=== PATIENT | female | born 1945 | race Caucasian/White ===

== ENCOUNTER 2017-06-24 10:28 | Outpatient (CLI) ==
--- NOTE | 2017-06-24 11:47 | DEXA ---
Exam: Bone densitometry DEXA scan performed on the [employer]. Comparison: 06/21/2014. Reason for exam: Screening. FINDINGS: Imaging was obtained of the lumbar spine and deemed to be adequate for interpretation. The total BMD of the lumbar spine measures 1.63 grams per centimeter squared. T-score 3.7. Z-score 4.9. T-score on the previous exam performed 06/21/2014 measured 3.6. WHO classification suggests normal bone mineral density. Imaging was obtained of the hips and is deemed to be adequate for interpretation. The mean total bone mineral density of the hips measures 1.073 grams per centimeter squared. T-score 0.5. Z-score 1.7. Previous mean T-score measured 0.6. WHO classification suggests normal bone mineral density. Impression: 1. WHO classification suggests normal bone mineral density of the lumbar spine and hips. 2. WHO 10-year probability of fracture (FRAX) fracture risk percentage Major osteoporotic fracture risk 13.6%. Hip fracture risk 2.7%.
== END 2017-06-24 10:29 | disposition home or self-care (01) ==
LOC: RAD 10:28
PROVIDERS: ATTEND Nurse Practitioner
DX: Z12.31 Encounter for screening mammogram for malignant neoplasm of breast (principal); Z78.0 Asymptomatic menopausal state
CPT/HCPCS: 77067

== ENCOUNTER 2022-12-09 22:00 | Observation (INO) ==
[2022-12-09] MEDS ORDERED: ZOFRAN 4 MG/2 ML IVP STA (22:40)
[2022-12-09] MEDS ORDERED: LACTATED RINGERS 1,000 ML IV STA (22:40)
--- NOTE | 2022-12-09 22:40 | ED.PDOC ---
General ED Provider: Dr. LEO PRIDE Chief Complaint: Nausea/Vomiting Stated Complaint: Patient is a 76 year old female who comes to the ER with vomiting and Diarrhea for two days but none in the past day. Vomited 4 ties in the last 24. Last one was 1800. Time Seen by Provider: 12/09/22 22:37 Mode of Arrival: Walk-In Information Source: Patient Primary Care Provider: LUIS F FELDER Nursing and Triage Documentation Reviewed and Agree: Yes Does patient meet sepsis criteria?: No System Inflammatory Response Syndrome: Not Applicable Sepsis Protocol: For patient's 13 years and over: Temp is 96.8 and below OR 101 and greater Pulse >90 BPM Resp >20/minute Acutely Altered Mental Status Are patient's symptoms suggestive of a new infection, such as: -Pneumonia -Skin, Soft Tissue -Endocarditis -UTI -Bone, Joint Infection -Implantable Device -Acute Abdominal Infection -Wound Infection -Meningitis -Blood Stream Catheter Infection -Unknown Review of Systems Review Of Systems Constitutional: Reports Weakness and Loss of appetite GI: Reports Diarrhea, Nausea, Poor appetite and Vomiting Neurological: Reports Anxiety All Other Systems: Reviewed and Negative [facility] Medical History (Updated 12/09/22 @ 23:08 by LEO PRIDE MD) No pertinent past medical history Social History Smoking and tobacco status: Former smoker Female Reproductive History Menstrual Hx Hysterectomy: No Hx Tubal Ligation: No Physical Exam Physical Exam Appearance: Reports Ill-appearing Ill-appearing: Mild Pain Distress: None Eyes: Reports AMI, EOMI and Conjunctiva clear ENT: Reports Nose normal and Oropharynx normal Neck: Supple Respiratory: Reports Airway patent, Breath sounds clear and Breath sounds equal Cardiovascular: Reports RRR, Pulses normal, No rub and No murmur GI/: Reports Soft, Nontender and No masses Musculoskeletal: Reports Normal strength and ROM intact Skin: Reports Warm and Dry Neurological: Reports Motor intact, Alert and Oriented Psychiatric: Reports Affect appropriate, Mood appropriate and Anxious Critical Care Note Critical Care Note Total Critical Care Time (mins): 0 Course Course Orders, Labs, Meds: Lab Review 12/09/22 22:30 Urine Color Light Urine Clarity Cloudy Urine pH 7.5 Ur Specific [place] 1.015 Urine Protein Negative Urine Glucose (UA) Negative Urine Ketones Negative Urine Blood 2+ H Urine Nitrite Positive H Urine Bilirubin Negative Urine Urobilinogen 0.2 Ur Leukocyte Esterase 3+ H Urine Microscopic RBC 2-5 Urine Microscopic WBC 5-10 Ur Squamous Epith Cells 5-10 Amorphous Sediment 2+ Urine Bacteria 2+ Orders Category Date Time Status ED IV/MEDIPORT/POWERPORT .ONCE EMERGENCY 12/09/22 22:40 Active AMYLASE Stat LAB 12/09/22 22:41 Ordered CBC W/ AUTO DIFF Stat LAB 12/09/22 22:41 Ordered COMPREHENSIVE METABOLIC PANEL Stat LAB 12/09/22 22:41 Ordered LIPASE Stat LAB 12/09/22 22:41 Ordered URINALYSIS C & S IF INDICATED Stat LAB 12/09/22 22:30 Completed URINE CULTURE Stat LAB 12/09/22 20:30 Received 0.9 % Sodium Chloride [Saline Flush] MEDS 12/09/22 22:40 Active 1 syr IVF PRN PRN Ceftriaxone/D5w 1 gm Premix [Rocephin 1 gm/50 ml D5w] MEDS 12/09/22 23:02 Active 1 gm in 50 ml IV ONCE Ondansetron HCl/Pf [Zofran 4 mg/2 ml] MEDS 12/09/22 22:40 Discontinued 4 mg IVP ONCE STA Ringers Lactated Solution [Lactated Ringers] 1,000 ml MEDS 12/09/22 22:40 Active IV BOLUS Medications Generic Name Dose Route Start Last Admin Trade Name Freq PRN Reason Stop Dose Admin Lactated Ringer's 1,000 mls @ 1,000 mls/hr 12/09/22 22:40 12/09/22 22:58 Lactated Ringers IV 12/09/22 23:39 1,000 mls/hr BOLUS STA Administration CEFTRIAXONE/D5W 1 GM PREMIX 1 gm in 50 mls @ 75 mls/hr 12/09/22 23:02 Rocephin 1 Gm/50 Ml D5w IV 12/09/22 23:41 ONCE STA Sodium Chloride 1 syr 12/09/22 22:40 12/09/22 22:56 0.9% Sodium Chloride 10 Ml Disp.Syrin IVF 1 syr PRN PRN Administration To flush IV Discontinued Medications Generic Name Dose Route Start Last Admin Trade Name Freq PRN Reason Stop Dose Admin Ondansetron HCl 4 mg 12/09/22 22:40 12/09/22 22:56 Ondansetron Hcl/Pf 4 Mg/2 Ml Sdv IVP 12/09/22 22:41 4 mg ONCE STA Administration Vital Signs: Temp Pulse Resp BP Pulse Ox 12/09/22 22:00 97.1 F L 81 18 124/68 95 Discharge Plan Discharge Patient Disposition: HOME SELF-CARE Discharge Problem: Acute UTI (urinary tract infection), Nausea, Vomiting, Gastroenteritis Prescriptions: No Action calcium 600 mg Capsule 600 mg PO DAILY multivitamin Tablet 1 tab PO DAILY Did you review [place] SENIOR ENGINEERING TECH for ALL controlled substances?: Not Applicable Discussed opioids are addictive and Narcan is available by prescription or from pharmacy.: No Activity Restrictions/Additional Instructions: Follow-up with your PCP in 3-5 days. Take medications as prescribed. Return if worse or concerned. ED Provider: LEO PRIDE Condition: Fair Physician Progress Note: []
[2022-12-09 22:46] LABS: BILIRUBIN,URINE Negative (NEGATIVE); CLARITY,URINE Cloudy (CLEAR); COLOR,URINE Light (YELLOW); GLUCOSE, URINE (UA) Negative (NEGATIVE); KETONES,URINE Negative (NEGATIVE); LEUKOCYTE ESTERASE ,URINE 3+ (NEGATIVE); NITRITE,URINE Positive (NEGATIVE); PH,URINE 7.5 (5-9); PROTEIN,URINE Negative (NEGATIVE); URINE, BLOOD 2+ (NEGATIVE); UROBILINOGEN,URINE 0.2 (0.2)
[2022-12-09 22:54] LABS: AMORPHOUS SEDIMENT,UR 2+ (NOT PRESENT); BACTERIA,URINE 2+ (NOT PRESENT)
[2022-12-09 22:58] LABS: HEMATOCRIT 43.1 % (37.0-47.0); HEMOGLOBIN 13.7 g/dl (12.0-16.0); MEAN CORPUSCULAR HEMOGLOBIN 28.8 pg (27.0-31.0); MEAN CORPUSCULAR HGB CONC 31.8 (31.8-35.4); MEAN CORPUSCULAR VOLUME 90.7 fl (81.0-99.0); PLATELET COUNT 217 10^3/uL (140-440); RDW COEFFICIENT OF VARIATION 13.4 % (11.6-14.8); RED BLOOD COUNT 4.75 10^6/ul (4.20-5.40); WHITE BLOOD COUNT 25.36 K/ul (4.6-10.2)
[2022-12-09] MEDS ORDERED: ROCEPHIN 1 GM/50 ML D5W 1 GM/50 ML BAG IV STA (23:02)
[2022-12-09 23:07] LABS: ANISOCYTOSIS NOT PRESENT (NOT PRESENT)
[2022-12-09 23:10] LABS: ALANINE AMINOTRANSFERASE 24.1 U/L (0-35); ALBUMIN 4.36 g/dL (3.5-5.0); ALKALINE PHOSPHATASE 83.5 U/L (53-141); AMYLASE 73.3 U/L (30-110); ASPARTATE AMINO TRANSFERASE 27.7 U/L (14-36); BILIRUBIN,TOTAL 0.54 mg/dL (0.2-1.3); BLOOD UREA NITROGEN 24.2 mg/dL (7-17); CALCIUM 9.42 mg/dL (8.4-10.2); CARBON DIOXIDE 28.8 mmol/L (22-30.0); CHLORIDE 102.9 mmol/L (98-107); CREATININE 0.89 mg/dL (0.60-1.30); GLUCOSE 118.7 mg/dL (74-106); LIPASE 131.7 U/L (23-300); POTASSIUM 3.42 mmol/L (3.5-5.1); SODIUM 138.8 mmol/L (134.5-145); TOTAL PROTEIN 6.94 g/dL (6.3-8.2)
[2022-12-09] MEDS ORDERED: ZOFRAN 4 MG/2 ML IVP PRN (23:17)
[2022-12-09] MEDS ORDERED: DILAUDID 1 MG/ML SYRINGE IVP PRN (23:17)
[2022-12-09] MEDS ORDERED: TYLENOL PO PRN (23:17)
[2022-12-09 23:56] LABS: SARS COV-2 RNA RAPID NAAT NEGATIVE (NEGATIVE)
[2022-12-10] MEDS: SODIUM CHLORIDE 1,000 ML IV SCH ×2 (00:39→08:20)
[2022-12-10 01:11] VITALS: BMI 30.2
[2022-12-10 05:17] LABS: HEMATOCRIT 40.5 % (37.0-47.0); HEMOGLOBIN 12.6 g/dl (12.0-16.0); MEAN CORPUSCULAR HEMOGLOBIN 28.8 pg (27.0-31.0); MEAN CORPUSCULAR HGB CONC 31.1 (31.8-35.4); MEAN CORPUSCULAR VOLUME 92.5 fl (81.0-99.0); PLATELET COUNT 188 10^3/uL (140-440); RDW COEFFICIENT OF VARIATION 13.5 % (11.6-14.8); RED BLOOD COUNT 4.38 10^6/ul (4.20-5.40); WHITE BLOOD COUNT 21.73 K/ul (4.6-10.2)
[2022-12-10 05:31] LABS: ANISOCYTOSIS NOT PRESENT (NOT PRESENT); BLOOD UREA NITROGEN 19.1 mg/dL (7-17); CALCIUM 8.68 mg/dL (8.4-10.2); CARBON DIOXIDE 31.2 mmol/L (22-30.0); CHLORIDE 106.5 mmol/L (98-107); CREATININE 0.85 mg/dL (0.60-1.30); GLUCOSE 94.3 mg/dL (74-106); SODIUM 139.4 mmol/L (134.5-145)
[2022-12-10 05:33] LABS: POTASSIUM 3.38 mmol/L (3.5-5.1)
[2022-12-10 05:53] VITALS: TEMP 97.6
[2022-12-10] MEDS ORDERED: LOVENOX SUBCUT SCH (09:00)
--- NOTE | 2022-12-10 09:59 | PCM.PROG ---
Date Seen by Provider: 12/10/22 Time Seen by Provider: 09:15 Subjective: Patient feeling much better. Tolerating oral intake. Objective: Vitals: T=97.6 F, P=76, R=16, IW=770/78, SPO2=99 Alert and in NAD. HEENT: [] Neck: [] Lungs: [] Clear and BS equal. CVS: [] RRR Abdomen: []Soft, nontender. No CVA tenderness. Extremities: [] Neurological: [] Skin: [] Lab/Tests/Diagnostic Imaging: [] (1) Acute UTI (urinary tract infection): Status: Acute Code(s): N39.0 - Urinary tract infection, site not specified SNOMED Code(s): 237266372 (2) Nausea: Status: Acute Code(s): R11.0 - Nausea SNOMED Code(s): 496355402 (3) Vomiting: Status: Acute Code(s): R11.10 - Vomiting, unspecified SNOMED Code(s): 147895886 (4) Gastroenteritis: Status: Acute Code(s): K52.9 - Noninfective gastroenteritis and colitis, unspecified SNOMED Code(s): 65932030 Plan: Patient much improved. Will discharge on keflex.
[2022-12-10] MEDS ORDERED: ROCEPHIN 1 GM/50 ML D5W 1 GM/50 ML BAG IV ONE (10:00)
--- NOTE | 2022-12-10 10:05 | PCM.DC ---
Final Diagnosis: acute urinary tract infection gastroenteritis Physical Exam Appearance: Well-appearing, No pain distress and Well-nourished Ill-appearing: None Pain Distress: None Eyes: Not Examined ENT: Nose normal and Oropharynx normal Neck: Supple Respiratory: Airway patent, Breath sounds clear and Breath sounds equal Cardiovascular: RRR, No rub and No murmur GI/: Soft, Nontender, No masses, Bowel sounds normal, No Organomegaly and Other (no CVA tenderness) Musculoskeletal: Normal strength, ROM intact and No edema Skin: Warm, Dry and Normal color Neurological: Alert and Oriented Psychiatric: Affect appropriate and Mood appropriate (1) Acute UTI (urinary tract infection): Status: Acute Code(s): N39.0 - Urinary tract infection, site not specified SNOMED Code(s): 348477513 (2) Nausea: Status: Acute Code(s): R11.0 - Nausea SNOMED Code(s): 354036022 (3) Vomiting: Status: Acute Code(s): R11.10 - Vomiting, unspecified SNOMED Code(s): 789104604 (4) Gastroenteritis: Status: Acute Code(s): K52.9 - Noninfective gastroenteritis and colitis, unspecified SNOMED Code(s): 78506375 Reason for Hospitalization: acute UTI and gastroenteritis Prognosis/Condition at Discharge: Condition at discharge was good. Medications at Discharge: Patient discharged on keflex in addition to the same medications as at admission. Education Provided to Patient and Family: urinary tract infection Follow-ups: Follow up with your primary care provider in one week. Discharge Disposition: Home Hospital Course: Patient admitted with acute UTI and gastroenteritis. She was treated with IV rocephin. Patient rapidly improved and was discharged home tolerating oral intake. Plan: Follow up with your primary care provider in one week.
[2022-12-10 10:39] VITALS: BP 107/64
[2022-12-10] MEDS ORDERED: ROCEPHIN 1 GM/50 ML D5W 1 GM/50 ML BAG IV SCH (21:00)
== END 2022-12-10 10:50 | disposition home or self-care (01) ==
LOC: ED 22:00 → MEDSURG A 22:00
PROVIDERS: ADMIT Internal Medicine Geriatric Medicine; ATTEND Surgery
DX: E86.0 Dehydration; Z20.822 Contact with and (suspected) exposure to COVID-19; Z51.81 Encounter for therapeutic drug level monitoring; Z79.83 Long term (current) use of bisphosphonates; R11.10 Vomiting, unspecified; Z87.891 Personal history of nicotine dependence; R11.0 Nausea; K52.9 Noninfective gastroenteritis and colitis, unspecified; N39.0 Urinary tract infection, site not specified

== ENCOUNTER 2023-12-29 08:43 | Observation (INO) ==
--- NOTE | 2023-12-29 08:57 | ED.PDOC ---
General ED Provider: Dr. 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 *PRN dosing is not "usually" associated with tolerance. *Patients are at higher risk of over-sedation and aspiration. What is Opioid Tolerant?: *Opioid Tolerance implies less than the expected response to an opioid. *Acquired tolerance is defined by the patient taking 60mg of oral morphine daily (or equianalgesic dose of another opioid) for 1 week or more. *Often associated with chronic pain. *May take more than usual dose to achieve desired pain control. Review of Systems Review Of Systems Constitutional: Reports Weakness; Denies Chills or Fever Eyes: Denies Blindness or Vision change Ears, Nose, Mouth, Throat: Reports Nose discharge; Denies Ear pain, Nose pain or Throat pain Respiratory: Reports Cough; Denies Shortness of Breath Cardiac: Denies Chest pain, Palpitations or Syncope GI: Denies Abdominal pain, Constipated or Diarrhea : Denies Burning or Discharge Musculoskeletal: Denies Back pain or Joint pain Skin: Denies Bruising or Rash Neurological: Denies Anxiety or Depressed Endocrine: Reports No symptoms Hematologic/Lymphatic: Reports No symptoms All Other Systems: Reviewed and Negative [facility] Medical History (Updated 12/29/23 @ 11:29 by CECILY ROSARIO DO) No pertinent past medical history Z78.9 - Other specified health status (ICD-10) Family History (Updated 12/10/22 @ 00:53 by ИРИНА AL RN) Other No known health problems Social History Smoking and tobacco status: Former smoker Alcohol intake: unknown Substance use type: does not use Household members: spouse Housing: house Marital status: M Number of children: 2 Financial difficulty paying for basics: not very hard Current gender identity: female Current diet type/program: regular Female Reproductive History Menstrual Hx Hysterectomy: No Hx Tubal Ligation: No Physical Exam Physical Exam Appearance: Reports Well-appearing and Well-nourished Ill-appearing: Not Applicable Pain Distress: Not Applicable Eyes: Reports AMI, EOMI and Conjunctiva clear ENT: Reports Ears normal, Nose normal and Oropharynx normal Neck: Supple Respiratory: Reports Airway patent and Breath sounds clear; Denies Crackles, Rhonchi or Wheezes Cardiovascular: Reports RRR and Pulses normal GI/: Reports Soft and Nontender Musculoskeletal: Reports Normal strength and ROM intact Skin: Reports Warm and Dry Neurological: Reports Sensation intact and Motor intact Psychiatric: Reports Affect appropriate and Mood appropriate Interpretation EKG Interpretation EKG Interpretation By: ED Physician Time of EKG #1: 09:34 Interpretation: NSR rate 90 qrs qt wnl No stemi Course Course 12/29/23 09:02 12/29/23 09:02 Orders, Labs, Meds: Lab Review 12/29/23 12/29/23 09:02 09:40 WBC 29.26 H RBC 4.65 Hgb 13.3 Hct 41.8 MCV 89.9 MCH 28.6 MCHC 31.8 RDW Coeff of Ingris 14.0 Plt Count 232 Neutrophils % (Manual) 22.0 L Lymphocytes % (Manual) 76.0 H Monocytes % (Manual) 1.0 Eosinophils % (Manual) 1.0 Anisocytosis Not present Puncture Site Lbrach Base Excess 5.4 H O2 Saturation 96.2 ABG pH 7.46 H ABG pCO2 41.0 ABG pO2 79.0 L ABG HCO3 29.2 H ABG Total CO2 30.5 H Jw Test N/a Hemoglobin 1.0 Oxyhemoglobin 95.9 Carboxyhemoglobin 1.6 H Total Hemoglobin 13.1 Sodium 139.7 Potassium 3.99 Chloride 107.8 H Carbon Dioxide 25.3 Anion Gap 10.59 BUN 17.9 H Creatinine 0.85 Estimated GFR (MDRD) 65.00 BUN/Creatinine Ratio 21.05 Glucose 108.4 H Lactic Acid 1.01 Calcium 9.25 Total Bilirubin 1.02 AST 30.3 ALT 27.0 Alkaline Phosphatase 109.8 Troponin I < 0.012 Total Protein 7.09 Albumin 4.32 Globulin 2.77 Albumin/Globulin Ratio 1.55 Procalcitonin < 0.05 Influ A Molecular Assay Negative by naat Influ B Molecular Assay Negative by naat RSV Antigen Negative by naat SARS CoV-2 RNA Rapid MICHELLE Positive H Orders Category Date Time Status OBSERVATION [PLACE PATIENT OBSERVATION] .TO [facility] ADMISSION 12/29/23 11:28 Active (MONITORED BED) ABG DRAW REQUEST Stat CARDIO 12/29/23 08:53 Completed EKG-(ED ONLY) Stat CARDIO 12/29/23 08:54 Completed NPO REMINDER: IMAGING ONCE CARE 12/29/23 08:54 Completed TELEMETRY MONITORING TELE CARE 12/29/23 11:28 Active ED APPLY O2 .ONCE EMERGENCY 12/29/23 08:54 Active ED GENERAL AGENT APPLIED .ONCE EMERGENCY 12/29/23 08:54 Active ABG COOX Stat LAB 12/29/23 09:40 Completed CBC W/ AUTO DIFF Stat LAB 12/29/23 09:02 Completed COMPREHENSIVE METABOLIC PANEL Stat LAB 12/29/23 09:02 Completed FLU A/B MOLECULAR Stat LAB 12/29/23 09:02 Completed LACTIC ACID Stat LAB 12/29/23 09:02 Completed MANUAL DIFFERENTIAL Stat LAB 12/29/23 09:02 Completed PROCALCITONIN Stat LAB 12/29/23 09:02 Completed RSV Stat LAB 12/29/23 09:02 Completed SARS COV-2 RNA RAPID MICHELLE Stat LAB 12/29/23 09:02 Completed TROPONIN I Stat LAB 12/29/23 09:[address] CHEST PE PROTOCOL Stat RADS 12/29/23 08:53 Completed Vital Signs: Temp Pulse Resp BP Pulse Ox 12/29/23 08:49 98.2 F 101 H 17 157/77 H 95 MDM: patient is a 78 yo F here for 24 hours of viral symptoms Patient afebrile and vitally stable Possible 94% spo2 on one reading Exam reassuring 3+ labs and 2 image results reviewed by me I consulted hospitalist, 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
[2023-12-29 09:11] LABS: HEMATOCRIT 41.8 % (37.0-47.0); HEMOGLOBIN 13.3 g/dl (12.0-16.0); MEAN CORPUSCULAR HEMOGLOBIN 28.6 pg (27.0-31.0); MEAN CORPUSCULAR HGB CONC 31.8 (31.8-35.4); MEAN CORPUSCULAR VOLUME 89.9 fl (81.0-99.0); PLATELET COUNT 232 10^3/uL (140-440); RED BLOOD COUNT 4.65 10^6/ul (4.20-5.40)
[2023-12-29 09:23] LABS: ALBUMIN 4.32 g/dL (3.5-5.0); ALKALINE PHOSPHATASE 109.8 U/L (53-141); ASPARTATE AMINO TRANSFERASE 30.3 U/L (14-36); BILIRUBIN,TOTAL 1.02 mg/dL (0.2-1.3); BLOOD UREA NITROGEN 17.9 mg/dL (7-17); CALCIUM 9.25 mg/dL (8.4-10.2); CARBON DIOXIDE 25.3 mmol/L (22-30.0); CHLORIDE 107.8 mmol/L (98-107); CREATININE 0.85 mg/dL (0.60-1.30); GLUCOSE 108.4 mg/dL (74-106); POTASSIUM 3.99 mmol/L (3.5-5.1); SODIUM 139.7 mmol/L (134.5-145); TOTAL PROTEIN 7.09 g/dL (6.3-8.2)
[2023-12-29 09:24] LABS: ANISOCYTOSIS NOT PRESENT (NOT PRESENT); WHITE BLOOD COUNT 29.26 K/ul (4.6-10.2)
[2023-12-29 09:27] LABS: SARS COV-2 RNA RAPID NAAT POSITIVE (NEGATIVE)
[2023-12-29 09:34] LABS: TROPONIN I < 0.012 ng/ml (0.0000-0.120)
[2023-12-29 09:37] LABS: MOLECULAR FLU A NEGATIVE BY NAAT (NEGATIVE); MOLECULAR FLU B NEGATIVE BY NAAT (NEGATIVE)
[2023-12-29 09:38] LABS: RSV MOLECULAR NEGATIVE BY NAAT (NEGATIVE)
[2023-12-29 09:48] LABS: ABG O2 HGB 95.9 % (95-100); ABG PH 7.46 (7.35-7.45); BEecf 5.4 (-2.0-3.0); COHb 1.6 (0.5-1.5); HCO3 29.2 (21-28); TCO2 30.5 (19-24); sO2 96.2 % (94-98); tHb 13.1 g/dl (11.7-17.4)
--- NOTE | 2023-12-29 10:45 | CT ---
EXAM: CTA OF THE PULMONARY ARTERIES WITH CONTRAST TECHNIQUE: CTA of the pulmonary arteries was performed with contrast. 2-D and 3-D reconstructions we re performed. HISTORY: COVID-19. Shortness of breath COMPARISON: None. FINDINGS: Pulmonary arteries: No pulmonary embolus detected. Lungs/pleura: There are emphysematous changes with scattered diffuse ground-glass pattern throughout both lungs. Can be seen in the setting of pneumonitis without confluent organization. No pleural eff usion. Mediastinum: There are mildly prominent hilar lymph nodes bilaterally. Aorticopulmonary window and p retracheal lymph nodes are present. The largest lymph node is in the aorticopulmonary window near th e hilum measuring one point centimeters and in the subcarinal region which measures up to 1.9 cm. Cardiovascular: No pericardial effusion. Aorta is normal in caliber. Chest wall/axillae/thoracic inlet: There are pathologically enlarged lymph nodes throughout the axill a bilaterally. Numerous lymph nodes are present the largest on the left measuring 2.2 x 1.8 x 3.3 cm . The largest on the right is approximately 2.9 cm Imaged upper abdomen: Stones are present in the gallbladder. There is a small nodule measuring 9 mm in the adrenal gland on the right. Possible adenoma. Low-density liver lesions indeterminate on the right. Measures approximately 8.5 mm. Too small to accurately characterize Bones: Disc disease thoracic spine. IMPRESSION: 1. Negative for pulmonary embolus 2. Pathologically enlarged lymph nodes of the axilla bilaterally with smaller mediastinal and hilar l ymph nodes. May be reactive in the setting of COVID-19 however differential would include neoplasm o f metastatic disease. Close interval follow-up to document progress and resolution recommended. 3. Diffuse ground-glass changes throughout both lungs which may be seen with atypical viral infection . The findings are superimposed on mild emphysematous changes. 4. Probable small adrenal adenoma 5. Indeterminate 8 mm low density hepatic lesion 6. Cholelithiasis. All CT scans are performed using dose optimization techniques as appropriate to the performed exam an d includes at least one of the following: Automated exposure control, adjustment of the mA and/or kV according to size, and the use of iterative reconstruction technique. All CT scans are performed using dose optimization techniques as appropriate to the performed exam an d include at least one of the following: Automated exposure control, adjustment of the mA and/or kV according t o size, and the use of iterative reconstruction technique.
[2023-12-29 12:38] VITALS: BMI 30.6
[2023-12-29] MEDS ORDERED: TYLENOL PO PRN (12:54)
[2023-12-29] MEDS ORDERED: ZOFRAN 4 MG/2 ML IVP PRN (12:54)
--- NOTE | 2023-12-29 12:57 | PCM ---
Date of Service Date Seen by Provider: 12/29/23 Time Seen by Provider: 13:00 Admit Day/Time Admission Date: 12/29/23 Admission Time: 11:28 Reason for Admission Chief Complaint: COVID 19 Hospital Provider Hospital Provider: BYRON MOLINA PA-C, [facility] Primary Care Physician Primary Care Physician: LUIS F FELDER History of Present Illness History of Present Illness: Patient is a 78 year old female from home with pmhx of CLL (not currently being treated), hypertension, and hydrocephalus (no shunt) who presents for cough, sob. Patient tested positive for covid in ER. is positive and has been hospitalized as well. O2 saturation has been good. CTA chest showed no PE but does show some opacities possibly viral pna. Patient is nontoxic appearing. Daughter at bedside. Case Discussed With Case Discussed With: Patient's case was discussed with the ER Physicians, Dr. Odom. [facility] Medical History No pertinent past medical history Z78.9 - Other specified health status (ICD-10) Family History Other No known health problems Social History Smoking and tobacco status: Former smoker Second hand smoke exposure: No Alcohol intake: former Substance use type: does not use Counseling given: No Household members: spouse Housing: house Marital status: M Number of children: 2 Financial difficulty paying for basics: not very hard Current gender identity: female Current diet type/program: regular Allergies Allergies Allergy/AdvReac Type Severity Reaction Status Date / Time No Known Allergies Allergy Verified 12/29/23 08:57 Current Medications Home Medications calcium 600 mg capsule 600 mg PO DAILY 08/04/22 [History Confirmed 12/29/23 Last Taken Unknown] multivitamin 1 tab PO DAILY 08/04/22 [History Confirmed 12/29/23 Last Taken Unknown] azelastine 137 mcg (0.1 %) nasal spray aerosol 2 spray intranasal BID PRN congestion 12/29/23 [History Confirmed 12/29/23 Last Taken Unknown] lisinopril 10 mg-hydrochlorothiazide 12.5 mg tablet 1 tab PO ONCE 12/29/23 [History Confirmed 12/29/23 Last Taken Unknown] Home Acetaminophen (Acetaminophen 325 Mg Tablet) 650 mg PO Q4H PRN PRN Reason: Mild Pain Calcium/Vitamin D (Calcium Carbonate/Vitamin D3 500 Mg/5 Mcg(200iu) 1 Each Tab let) 1 each PO DAILY [facility] Enoxaparin Sodium (Enoxaparin Sodium 40 Mg/0.4 Ml Syr) 40 mg SUBCUT DAILY [facility] Hydrochlorothiazide (Hydrochlorothiazide 25 Mg Tablet) 12.5 mg PO DAILY [facility] Remdesivir 100 mg/ Sodium (Chloride) 100 mls @ 200 mls/hr IV DAILY [facility] Stop: 01/02/24 09:29 Lisinopril (Lisinopril 10 Mg Tablet) 10 mg PO DAILY [facility] Ondansetron HCl (Ondansetron Hcl/Pf 4 Mg/2 Ml Sdv) 4 mg IVP Q6H PRN PRN Reason: Nausea / Vomiting Discontinued Medications Remdesivir 200 mg/ Sodium (Chloride) 250 mls @ 250 mls/hr IV ONCE ONE Stop: 12/29/23 13:53 Last Admin: 12/29/23 14:18 Dose: 250 mls/hr Non-Formulary Medication (Lisinopril-Hydrochlorothiazide) 1 tab PO ONCE [facility] Opioid Naive vs. Tolerant Does Patient Take Opioids?: No Is Patient Opioid Naive?: Yes What is Opioid Naive?: *Opioid Naive implies the patient is not already taking opioids or not chronically receiving opioids on a daily basis. *PRN dosing is not "usually" associated with tolerance. *Patients are at higher risk of over-sedation and aspiration. Is Patient Opioid Tolerant?: No What is Opioid Tolerant?: *Opioid Tolerance implies less than the expected response to an opioid. *Acquired tolerance is defined by the patient taking 60mg of oral morphine daily (or equianalgesic dose of another opioid) for 1 week or more. *Often associated with chronic pain. *May take more than usual dose to achieve desired pain control. Review of Systems Constitutional: Reports Fatigue and Weakness; Denies Fever Head: Reports Normocephalic and Atraumatic Cardiovascular: Denies Chest pain, Chest Pressure or Edema Respiratory: Reports Cough and Shortness of air Gastrointestinal: Denies Nausea, Vomiting, Diarrhea, Abdominal pain or Melena Genitourinary: Denies Dysuria or Frequency Dermatologic: Denies Rashes Neurological: Reports Weakness; Denies Headache Physical examination Most Recent Vital Signs: Most Recent Vital Signs Temperature 97.2 F L 12/29/23 12:17 Temperature Source Oral 12/29/23 12:17 Temperature Source Oral 12/29/23 08:49 Pulse Rate 75 12/29/23 12:17 Respiratory Rate 16 12/29/23 12:17 Blood Pressure 157/77 H 12/29/23 08:49 Blood Pressure Left Arm 152/71 12/29/23 12:17 Blood Pressure Position Supine 12/29/23 12:17 O2 Sat by Pulse Oximetry 97 12/29/23 12:17 Oxygen Delivery Method Room Air 12/29/23 12:17 Height 5 ft 5 in 12/29/23 12:17 Weight 184 lb 12/29/23 12:17 Telemetry Type Bedside Monitor 12/29/23 12:50 Telemetry Monitoring Started 12/29/23 12:50 Telemetry Heart Rate 70 12/29/23 12:50 Telemetry SPO2 97 12/29/23 12:50 EKG NM Interval 0.24 H 12/29/23 12:50 EKG QRS Interval 0.08 12/29/23 12:50 Telemetry Strip Reading SR WITH 1ST DEGREE AVB 12/29/23 12:50 Appearance: Positive Well-appearing, Well-nourished, No Apparent Distress and Alert and Oriented x3 (+has some baseline confusion per daughter ) Skin: Positive [place], Warm and Good Turgor; Negative Rashes HEENT: Positive Normocephalic and Atraumatic Neck: Positive Supple and Midline Trachea Chest/Lungs: Positive Clear to Auscultation Bilaterally and Other (98% on RA upon evaluation ); Negative Rales, Rhonci or Wheezes Heart: Positive RRR GI/: Positive Soft, Nontender, Bowel Sounds Normal and No Distention Extremities: Negative Edema Neurological: Positive Cranial Nerves Intact, Alert, Oriented and Other (+generalized weakness ) Psychiatric: Positive Oriented x4, Appropriate Mood and Appropriate Affect Labs This Visit Labs This Visit: Labs This Visit 12/29/23 12/29/23 09:02 09:40 WBC 29.26 H RBC 4.65 Hgb 13.3 Hct 41.8 MCV 89.9 MCH 28.6 MCHC 31.8 RDW Coeff of Ingris 14.0 Plt Count 232 Neutrophils % (Manual) 22.0 L Lymphocytes % (Manual) 76.0 H Monocytes % (Manual) 1.0 Eosinophils % (Manual) 1.0 Anisocytosis Not present Puncture Site Lbrach Base Excess 5.4 H O2 Saturation 96.2 ABG pH 7.46 H ABG pCO2 41.0 ABG pO2 79.0 L ABG HCO3 29.2 H ABG Total CO2 30.5 H Jw Test N/a Hemoglobin 1.0 Oxyhemoglobin 95.9 Carboxyhemoglobin 1.6 H Total Hemoglobin 13.1 Sodium 139.7 Potassium 3.99 Chloride 107.8 H Carbon Dioxide 25.3 Anion Gap 10.59 BUN 17.9 H Creatinine 0.85 Estimated GFR (MDRD) 65.00 BUN/Creatinine Ratio 21.05 Glucose 108.4 H Lactic Acid 1.01 Calcium 9.25 Total Bilirubin 1.02 AST 30.3 ALT 27.0 Alkaline Phosphatase 109.8 Troponin I < 0.012 Total Protein 7.09 Albumin 4.32 Globulin 2.77 Albumin/Globulin Ratio 1.55 Procalcitonin < 0.05 Influ A Molecular Assay Negative by naat Influ B Molecular Assay Negative by naat RSV Antigen Negative by naat SARS CoV-2 RNA Rapid MICHELLE Positive H Imaging Imaging: EXAM: CTA OF THE PULMONARY ARTERIES WITH CONTRAST TECHNIQUE: CTA of the pulmonary arteries was performed with contrast. 2-D and 3-D reconstructions were performed. HISTORY: COVID-19. Shortness of breath COMPARISON: None. FINDINGS: Pulmonary arteries: No pulmonary embolus detected. Lungs/pleura: There are emphysematous changes with scattered diffuse ground- glass pattern throughout both lungs. Can be seen in the setting of pneumonitis without confluent organization. No pleural effusion. Mediastinum: There are mildly prominent hilar lymph nodes bilaterally. Aorticopulmonary window and pretracheal lymph nodes are present. The largest lymph node is in the aorticopulmonary window near the hilum measuring one point centimeters and in the subcarinal region which measures up to 1.9 cm. Cardiovascular: No pericardial effusion. Aorta is normal in caliber. Chest wall/axillae/thoracic inlet: There are pathologically enlarged lymph nodes throughout the axilla bilaterally. Numerous lymph nodes are present the largest on the left measuring 2.2 x 1.8 x 3.3 cm. The largest on the right is approximately 2.9 cm Imaged upper abdomen: Stones are present in the gallbladder. There is a small nodule measuring 9 mm in the adrenal gland on the right. Possible adenoma. Low-density liver lesions indeterminate on the right. Measures approximately 8.5 mm. Too small to accurately characterize Bones: Disc disease thoracic spine. IMPRESSION: 1. Negative for pulmonary embolus 2. Pathologically enlarged lymph nodes of the axilla bilaterally with smaller mediastinal and hilar lymph nodes. May be reactive in the setting of COVID-19 however differential would include neoplasm of metastatic disease. Close interval follow-up to document progress and resolution recommended. 3. Diffuse ground-glass changes throughout both lungs which may be seen with atypical viral infection. The findings are superimposed on mild emphysematous changes. 4. Probable small adrenal adenoma 5. Indeterminate 8 mm low density hepatic lesion 6. Cholelithiasis. Review Statement Review Statement: I have independently reviewed and interpreted the labs/EKGs/imaging that were ordered by the ER provider. I have reviewed all outside records that are available currently in our EMR including imaging/notes/labs from previous visits. Plan Plan: 1. Covid 19 - Pt and daughter opt for remdesivir. Not a candidate for decadron currently. On RA. 2. Hypertension - Cont home meds 3. CLL - Not undergoing treatment, wbc count elevated chronically 4. 8 mm hepatic lesion - F/u outpatient DVT Prophylaxis: Lovenox Time Spent: Greater than 80 minutes spent with patient, 50% of the time spent wi th this patient was devoted to counseling and coordination of care. [facility] minutes spent discussing advance care planning. DNR Admit to: Obs Discussed Plan of Care with Dr. Alejandra Aguayo. Medications Medication Orders: Medications Ordered Category Date Time Status Acetaminophen [Tylenol] Meds 12/29/23 12:54 Ordered 650 mg PO Q4H PRN Enoxaparin Sodium [Lovenox] Meds 12/30/23 09:00 Ordered 40 mg SUBCUT DAILY Ondansetron HCl/Pf [Zofran 4 mg/2 ml] Meds 12/29/23 12:54 Ordered 4 mg IVP Q6H PRN Remdesivir [Veklury] 100 mg Meds 12/30/23 09:00 Ordered 0.9 % Sodium Chloride [Sodium Chloride 100Ml] 100 ml IV DAILY Remdesivir [Veklury] 200 mg Meds 12/29/23 12:54 Ordered 0.9 % Sodium Chloride [Sodium Chloride] 250 ml IV ONCE calcium Meds 12/30/23 09:00 Ordered 600 mg PO DAILY lisinopril-hydrochlorothiazide Meds 12/29/23 13:00 Ordered 1 tab PO ONCE
[2023-12-29 13:42] LABS: PROTHROMBIN TIME 9.7 SEC (9.3-11.0)
[2023-12-29] MEDS: VEKLURY 200 MG in SODIUM CHLORIDE 250 ML IV ONE (14:18)
[2023-12-30 05:37] LABS: HEMOGLOBIN 12.6 g/dl (12.0-16.0); MEAN CORPUSCULAR HEMOGLOBIN 28.2 pg (27.0-31.0); MEAN CORPUSCULAR HGB CONC 31.5 (31.8-35.4); MEAN CORPUSCULAR VOLUME 89.5 fl (81.0-99.0); PLATELET COUNT 201 10^3/uL (140-440); RDW COEFFICIENT OF VARIATION 14.1 % (11.6-14.8); RED BLOOD COUNT 4.47 10^6/ul (4.20-5.40); WHITE BLOOD COUNT 23.24 K/ul (4.6-10.2)
[2023-12-30 05:53] LABS: PROTHROMBIN TIME 10.3 SEC (9.3-11.0)
[2023-12-30 05:54] LABS: ANISOCYTOSIS NOT PRESENT (NOT PRESENT)
[2023-12-30 05:57] LABS: ALANINE AMINOTRANSFERASE 24.1 U/L (0-35); ALBUMIN 3.81 g/dL (3.5-5.0); ALKALINE PHOSPHATASE 104.5 U/L (53-141); ASPARTATE AMINO TRANSFERASE 27.6 U/L (14-36); BILIRUBIN,TOTAL 1.01 mg/dL (0.2-1.3); BLOOD UREA NITROGEN 18.2 mg/dL (7-17); CALCIUM 8.88 mg/dL (8.4-10.2); CARBON DIOXIDE 23.8 mmol/L (22-30.0); CHLORIDE 107.9 mmol/L (98-107); CREATININE 0.78 mg/dL (0.60-1.30); GLUCOSE 97.7 mg/dL (74-106); POTASSIUM 3.78 mmol/L (3.5-5.1); SODIUM 136.4 mmol/L (134.5-145); TOTAL PROTEIN 6.55 g/dL (6.3-8.2)
[2023-12-30] MEDS: LOVENOX SUBCUT SCH (08:34)
[2023-12-30] MEDS: CALCIUM 500 + VIT D 5 MCG (200 IU) TABLET PO SCH (08:35)
[2023-12-30] MEDS: ZESTRIL PO SCH (08:36)
[2023-12-30] MEDS: HYDROCHLOROTHIAZIDE PO SCH (08:36)
[2023-12-30] MEDS: VEKLURY 100 MG in SODIUM CHLORIDE 100ML 100 ML IV SCH (08:48)
[2023-12-30] MEDS ORDERED: NON-FORMULARY MEDICATION (Calcium 600 mg Capsule) PO SCH (09:00)
[2023-12-30 09:58] VITALS: RESP 18
--- NOTE | 2023-12-30 10:42 | DCSUM ---
Admission Date Admission Date: 12/29/23 Discharge Date Discharge Date: 12/30/23 Admission Diagnosis Admission Diagnosis: 1. Covid 19 Discharge Diagnosis Discharge Diagnosis: 1. Covid 19 2. Hypertension 3. CLL 4. 8 mm hepatic lesion 5. Axillary lymphadenopathy Hospital Provider Hospital [facility]ician Primary Care Physician: LUIS F FELEDR Summary of History and Physical Summary of History and Physical: Patient is a 78 year old female from home with pmhx of CLL (not currently being treated), hypertension, and hydrocephalus (no shunt) who presents for cough, sob. Patient tested positive for covid in ER. is positive and has been hospitalized as well. O2 saturation has been good. CTA chest showed no PE but does show some opacities possibly viral pna. Patient is nontoxic appearing. Daughter at bedside. Hospital Course Subjective: Patient remained on RA. She received two doses of remdesivir due to her comorbidities, will return tomorrow for 3rd dose. CTA negative for PE, does show evidence of viral infection. Pt clinically looks great. Discussed red flags on when to return. Of note, CTA does mention enlarged lymph nodes, and a hepatic lesion. Consider outpatient f/u if family would like. Lymphadenopathy could simply be reactive. Pt currently has CLL and not undergoing any treatment. Daughters very supportive. Appearance: Pleasant, No Apparent Distress, Alert and Well-appearing HEENT: MMM CVS: No Murmur Abdomen: Soft, Non-Tender and No Distention Respiratory: No Accessory Muscle Use Extremities: No Edema Vital Signs: Most Recent Vital Signs Temperature 97.7 F 12/30/23 05:59 Temperature Source Oral 12/30/23 05:59 Temperature Source Oral 12/29/23 08:49 Pulse Rate 80 12/30/23 05:59 Respiratory Rate 18 12/30/23 08:00 Blood Pressure 134/74 12/30/23 05:59 Blood Pressure Mean 94 12/30/23 05:59 Blood Pressure Left Arm 152/71 12/29/23 12:17 Blood Pressure Location Left Arm 12/29/23 18:00 Blood Pressure Position Supine 12/30/23 05:59 O2 Sat by Pulse Oximetry 96 12/30/23 05:59 Oxygen Delivery Method Room Air 12/30/23 10:00 Height 5 ft 5 in 12/29/23 12:17 Weight 184 lb 12/29/23 12:17 Telemetry Type Bedside Monitor 12/30/23 07:00 Telemetry Monitoring Continues 12/30/23 07:00 Telemetry Heart Rate 91 12/30/23 07:00 Telemetry SPO2 98 12/30/23 07:00 EKG OR Interval 0.11 L 12/30/23 07:00 EKG QRS Interval 0.10 12/30/23 07:00 Telemetry Strip Reading SR 12/30/23 07:00 Imaging: EXAM: CTA OF THE PULMONARY ARTERIES WITH CONTRAST TECHNIQUE: CTA of the pulmonary arteries was performed with contrast. 2-D and 3-D reconstructions were performed. HISTORY: COVID-19. Shortness of breath COMPARISON: None. FINDINGS: Pulmonary arteries: No pulmonary embolus detected. Lungs/pleura: There are emphysematous changes with scattered diffuse ground- glass pattern throughout both lungs. Can be seen in the setting of pneumonitis without confluent organization. No pleural effusion. Mediastinum: There are mildly prominent hilar lymph nodes bilaterally. Aorticopulmonary window and pretracheal lymph nodes are present. The largest lymph node is in the aorticopulmonary window near the hilum measuring one point centimeters and in the subcarinal region which measures up to 1.9 cm. Cardiovascular: No pericardial effusion. Aorta is normal in caliber. Chest wall/axillae/thoracic inlet: There are pathologically enlarged lymph nodes throughout the axilla bilaterally. Numerous lymph nodes are present the largest on the left measuring 2.2 x 1.8 x 3.3 cm. The largest on the right is approximately 2.9 cm Imaged upper abdomen: Stones are present in the gallbladder. There is a small nodule measuring 9 mm in the adrenal gland on the right. Possible adenoma. Low-density liver lesions indeterminate on the right. Measures approximately 8.5 mm. Too small to accurately characterize Bones: Disc disease thoracic spine. IMPRESSION: 1. Negative for pulmonary embolus 2. Pathologically enlarged lymph nodes of the axilla bilaterally with smaller mediastinal and hilar lymph nodes. May be reactive in the setting of COVID-19 however differential would include neoplasm of metastatic disease. Close interval follow-up to document progress and resolution recommended. 3. Diffuse ground-glass changes throughout both lungs which may be seen with atypical viral infection. The findings are superimposed on mild emphysematous changes. 4. Probable small adrenal adenoma 5. Indeterminate 8 mm low density hepatic lesion 6. Cholelithiasis. Lab Results Last 24 Hours: 12/30/23 12/29/23 05:23 09:02 WBC 23.24 H D RBC 4.47 Hgb 12.6 Hct 40.0 MCV 89.5 MCH 28.2 MCHC 31.5 L RDW Coeff of Ingris 14.1 Plt Count 201 Neutrophils % (Manual) 21.0 L Lymphocytes % (Manual) 75.0 H Monocytes % (Manual) 4.0 Anisocytosis Not present PT 10.3 9.7 INR 0.99 0.93 Sodium 136.4 Potassium 3.78 Chloride 107.9 H Carbon Dioxide 23.8 Anion Gap 8.48 BUN 18.2 H Creatinine 0.78 Estimated GFR (MDRD) 71.00 BUN/Creatinine Ratio 23.33 Glucose 97.7 Calcium 8.88 Total Bilirubin 1.01 AST 27.6 ALT 24.1 Alkaline Phosphatase 104.5 Total Protein 6.55 Albumin 3.81 Globulin 2.74 Albumin/Globulin Ratio 1.39 Discharge Instructions Discharge Planning: Discharge Planning > [address] Alejandra Aguayo. Discharge Medications: Medications at Discharge (Home Meds & RX) calcium 600 mg capsule 600 mg PO DAILY 08/04/22 multivitamin 1 tab PO DAILY 08/04/22 azelastine 137 mcg (0.1 %) nasal spray aerosol 2 spray intranasal BID PRN congestion 12/29/23 lisinopril 10 mg-hydrochlorothiazide 12.5 mg tablet 1 tab PO ONCE 12/29/23 Discharge Plan Discharge Discharge Orders: Discharge Patient (ONCE); Ordered 12/30/23 Ordered By: BYRON MOLINA Activity Restrictions/Additional Instructions: DISCHARGE TO HOME DX: COVID DIET: HEART HEALTHY ACTIVITY: TOLERATED RETURN WITH WORSENING SYMPTOMS Patient Disposition: HOME WITH FAMILY CARE Prescriptions: Continued calcium 600 mg Capsule 600 mg PO DAILY multivitamin Tablet 1 tab PO DAILY azelastine 137 mcg (0.1 %) aerosol,spray 2 spray INTRANASAL BID PRN (Reason: congestion) lisinopril-hydrochlorothiazide 10-12.5 mg tablet 1 tab PO ONCE Did you review [place] [employer] for ALL controlled substances?: Not Applicable Discussed opioids are addictive and Narcan is available by prescription or from pharmacy.: No Condition: Stable Referrals: LUIS F FELDER MD [Primary Care Provider] - 01/06/24 8:00 am
[2023-12-30 11:45] VITALS: BP 146/81; PULSE 92; TEMP 98.1
== END 2023-12-30 11:54 | disposition home or self-care (01) ==
LOC: SCU 08:43 → ED 08:43 → SCU 12:10
PROVIDERS: ADMIT Hospitalist; ATTEND Physician Assistant

== ENCOUNTER 2024-06-17 20:17 | Observation (INO) ==
--- NOTE | 2024-06-17 20:48 | ED.PDOC ---
General ED Provider: Dr. MATIAS SULLIVAN MD Chief Complaint: Nausea/Vomiting Stated Complaint: Nausea/vomiting Time Seen by Provider: 06/17/24 20:39 Mode of Arrival: Ambulance Information Source: Patient Primary Care Provider: LUIS F FELDER Nursing and Triage Documentation Reviewed and Agree: Yes What is Opioid Naive?: *Opioid Naive implies the patient is not already taking opioids or not chronically receiving opioids on a daily basis. *PRN dosing is not "usually" associated with tolerance. *Patients are at higher risk of over-sedation and aspiration. What is Opioid Tolerant?: *Opioid Tolerance implies less than the expected response to an opioid. *Acquired tolerance is defined by the patient taking 60mg of oral morphine daily (or equianalgesic dose of another opioid) for 1 week or more. *Often associated with chronic pain. *May take more than usual dose to achieve desired pain control. GI Complaint Exam Vomiting/Diarrhea Complaint/Exam Onset/Duration: 3 days ago Symptoms Are: Still present Episodes of Vomiting over last 24 Hours: 3 Episodes of Diarrhea Over Last 24 Hours: 3 Initial Severity: Moderate Current Severity: Moderate Character of Vomiting: Reports Non-bilious Aggravating: Reports None Differential Diagnoses: Dehydration, Gastritis and Viral Gastroenteritis Review of Systems Review Of Systems Constitutional: Reports No symptoms Eyes: Reports No symptoms Ears, Nose, Mouth, Throat: Reports No symptoms Respiratory: Reports No symptoms Cardiac: Reports No symptoms GI: Reports Diarrhea (Loose stool), Nausea and Vomiting : Reports No symptoms Musculoskeletal: Reports No symptoms Skin: Reports No symptoms Neurological: Reports No symptoms Endocrine: Reports No symptoms Hematologic/Lymphatic: Reports No symptoms All Other Systems: Reviewed and Negative [facility] Medical History No pertinent past medical history Z78.9 - Other specified health status (ICD-10) Family History Other No known health problems Social History Smoking and tobacco status: Former smoker Second hand smoke exposure: No Alcohol intake: former Substance use type: does not use Counseling given: No Household members: spouse Housing: house Marital status: M Number of children: 2 Financial difficulty paying for basics: not very hard Current gender identity: female Current diet type/program: regular Female Reproductive History Menstrual Hx Hysterectomy: No Hx Tubal Ligation: No Physical Exam Physical Exam Appearance: Reports Well-appearing, No pain distress and Well-nourished Ill-appearing: None Pain Distress: None ENT: Reports Oropharynx normal Respiratory: Reports Airway patent, Breath sounds clear, Breath sounds equal and Respirations nonlabored Cardiovascular: Reports RRR and No murmur GI/: Reports Soft, Nontender and Bowel sounds normal Musculoskeletal: Reports ROM intact Skin: Reports Warm, Dry and Normal color Neurological: Reports Sensation intact, Cranial nerves intact, Alert and Oriented Psychiatric: Reports Affect appropriate and Mood appropriate Course Course 06/17/24 20:55 06/17/24 20:55 Orders, Labs, Meds: Lab Review 06/17/24 06/17/24 20:55 21:13 WBC 23.31 H RBC 4.92 Hgb 13.9 Hct 44.5 MCV 90.4 MCH 28.3 MCHC 31.2 L RDW Coeff of Ingris 14.2 Plt Count 229 Neutrophils % (Manual) 30.0 L Lymphocytes % (Manual) 62.0 H Monocytes % (Manual) 3.0 Eosinophils % (Manual) 1.0 Reactive Lymphocytes 4.0 Hypochromasia 2+ Anisocytosis 2+ Microcytosis 2+ Sodium 140.6 Potassium 3.51 Chloride 103.6 Carbon Dioxide 29.4 Anion Gap 11.11 BUN 14.1 Creatinine 0.88 Estimated GFR (MDRD) 62.00 BUN/Creatinine Ratio 16.02 Glucose 131.0 H Calcium 8.82 Total Bilirubin 0.66 AST 31.6 ALT 21.6 Alkaline Phosphatase 87.7 Total Protein 6.90 Albumin 4.33 Globulin 2.57 Albumin/Globulin Ratio 1.68 Lipase 217.3 Urine Color Yellow Urine Clarity Cloudy Urine pH 7.0 Ur Specific [place] 1.020 Urine Protein Negative Urine Glucose (UA) Negative Urine Ketones Negative Urine Blood 2+ H Urine Nitrite Negative Urine Bilirubin Negative Urine Urobilinogen 0.2 Ur Leukocyte Esterase 2+ H Urine Microscopic RBC 10-20 Urine Microscopic WBC 30-50 Ur Squamous Epith Cells 5-10 Urine Bacteria 1+ Orders Category Date Time Status PLACE PATIENT OBSERVATION .TO [facility] (MONITORED BED ADMISSION 06/17/24 22:21 Active ) ACTIVITY .Up With Assistance CARE 06/17/24 22:21 Active GIVE HS SNACK 2100 CARE 06/17/24 22:21 Active INTAKE & OUTPUT Q8HR CARE 06/17/24 22:21 Active TELEMETRY MONITORING TELE CARE 06/17/24 22:21 Active VITAL SIGNS Q8HR CARE 06/17/24 22:21 Active CLEAR LIQUID DIET DIETARY 06/18/24 Breakfast Ordered HS SNACK DIETARY 06/17/24 Dinner Ordered CBC W/ AUTO DIFF DAILY@0600 LAB 06/18/24 06:00 Ordered CBC W/ AUTO DIFF DAILY@0600 LAB 06/19/24 06:00 Ordered CBC W/ AUTO DIFF Stat LAB 06/17/24 20:55 Completed CMP [COMPREHENSIVE METABOLIC PANEL] Stat LAB 06/17/24 20:55 Completed COMPREHENSIVE METABOLIC PANEL DAILY@0600 LAB 06/18/24 06:00 Ordered COMPREHENSIVE METABOLIC PANEL DAILY@0600 LAB 06/19/24 06:00 Ordered LIPASE Stat LAB 06/17/24 20:55 Completed MANUAL DIFFERENTIAL Stat LAB 06/17/24 20:55 Completed URINALYSIS C & S IF INDICATED Stat LAB 06/17/24 21:13 Completed URINE CULTURE Stat LAB 06/17/24 21:13 Received Acetaminophen [Tylenol] Meds 06/17/24 22:21 Active 650 mg PO Q4H PRN Ceftriaxone/D5w 1 gm Premix [Rocephin 1 gm/50 ml D5w] Meds 06/17/24 22:25 Active 1 gm in 50 ml IV BEDTIME Metoclopramide HCl [Reglan] Meds 06/17/24 22:21 Active 5 mg IVP Q6HR PRN Ondansetron HCl/Pf [Zofran 4 mg/2 ml] Meds 06/17/24 20:47 Discontinued 4 mg .ROUTE .STK-MED ONE Ondansetron HCl/Pf [Zofran 4 mg/2 ml] Meds 06/17/24 20:47 Discontinued 4 mg IVP ONCE STA Ondansetron HCl/Pf [Zofran 4 mg/2 ml] Meds 06/17/24 22:21 Active 4 mg IVP Q6H PRN Ringers Lactated Solution [Lactated Ringers] 1,000 ml Meds 06/17/24 22:30 Active IV 75 mls/hr Medications Generic Name Dose Route Start Last Admin Trade Name Freq PRN Reason Stop Dose Admin Acetaminophen 650 mg 06/17/24 22:21 Acetaminophen 325 Mg Tablet PO Q4H PRN Mild Pain CEFTRIAXONE/D5W 1 GM PREMIX 1 gm in 50 mls @ 100 mls/hr 06/17/24 22:25 06/17/24 22:40 Rocephin 1 Gm/50 Ml D5w IV 06/20/24 22:24 100 mls/hr BEDTIME GLENN Administration Lactated Ringer's 1,000 mls @ 75 mls/hr 06/17/24 22:30 06/17/24 22:41 Lactated Ringers IV 75 mls/hr .[id number] GLENN Administration Metoclopramide HCl 5 mg 06/17/24 22:21 Metoclopramide Hcl 10 Mg/2 Ml IVP Q6HR PRN nausea Ondansetron HCl 4 mg 06/17/24 22:21 Ondansetron Hcl/Pf 4 Mg/2 Ml Sdv IVP Q6H PRN Nausea / Vomiting Discontinued Medications Generic Name Dose Route Start Last Admin Trade Name Freq PRN Reason Stop Dose Admin Ondansetron HCl 4 mg 06/17/24 20:47 06/17/24 20:51 Ondansetron Hcl/Pf 4 Mg/2 Ml Sdv IVP 06/17/24 20:48 4 mg ONCE STA Administration Vital Signs: Temp Pulse Resp BP Pulse Ox 06/17/24 22:24 77 16 145/69 H 95 06/17/24 20:18 97.8 F 81 18 150/71 H 96 Discharge Plan Discharge Patient Disposition: PLACED OBSERVATION Discharge Problem: Nausea vomiting and diarrhea Did you review [place] [employer]PERATOR for ALL controlled substances?: Not Applicable ED Provider: MATIAS SULLIVAN Condition: Stable Physician Progress Note: Patient is here complaining of nausea, vomiting and diarrhea for the past 3 days. She said she had three episodes of vomiting today and it was mostly fluid. She had two episodes of diarrhea today and it was loose stool. She came via ambulance and received 4 mg of Zofran in the ambulance. She said her nausea improved but now it is starting to worsen. She denies abdominal pain. I ordered CBC, CMP, lipase and urinalysis and 4 mg of Zofran. She was started on fluids in the ambulance. She has not hooked up to the fluids in the ER and I asked the nurses to restart the fluids up. After receiving fluids and Zofran patient said she felt much better. She had no episodes of vomiting in the ER. Her urine has some white blood cells and 1+ bacteria. She denies symptoms of urinary tract infection including frequency, urgency, burning with urination or back pain. I told patient I will discharge her home and give her prescription of Macrobid. Daughter wants patient patient to be admitted for observation overnight. Daughter said that she cannot get patient to drink fluids at home and does not believe she can get her to take Zofran. I called the hospitalist and spoke to her regarding admission overnight. She said she would admit patient overnight for observation and discharge her in the morning. I told family that patient would be admitted to observation and then discharged in the morning.
[2024-06-17] MEDS: ZOFRAN 4 MG/2 ML IVP STA (20:51)
[2024-06-17] MEDS: ZOFRAN 4 MG/2 ML ONE (21:00)
[2024-06-17 21:02] LABS: HEMATOCRIT 44.5 % (37.0-47.0); HEMOGLOBIN 13.9 g/dl (12.0-16.0); MEAN CORPUSCULAR HEMOGLOBIN 28.3 pg (27.0-31.0); MEAN CORPUSCULAR HGB CONC 31.2 (31.8-35.4); MEAN CORPUSCULAR VOLUME 90.4 fl (81.0-99.0); PLATELET COUNT 229 10^3/uL (140-440); RDW COEFFICIENT OF VARIATION 14.2 % (11.6-14.8); RED BLOOD COUNT 4.92 10^6/ul (4.20-5.40); WHITE BLOOD COUNT 23.31 K/ul (4.6-10.2)
[2024-06-17 21:13] LABS: ALANINE AMINOTRANSFERASE 21.6 U/L (0-35); ALBUMIN 4.33 g/dL (3.5-5.0); ALKALINE PHOSPHATASE 87.7 U/L (53-141); ASPARTATE AMINO TRANSFERASE 31.6 U/L (14-36); BILIRUBIN,TOTAL 0.66 mg/dL (0.2-1.3); BLOOD UREA NITROGEN 14.1 mg/dL (7-17); CALCIUM 8.82 mg/dL (8.4-10.2); CARBON DIOXIDE 29.4 mmol/L (22-30.0); CHLORIDE 103.6 mmol/L (98-107); CREATININE 0.88 mg/dL (0.60-1.30); LIPASE 217.3 U/L (23-300); POTASSIUM 3.51 mmol/L (3.5-5.1); SODIUM 140.6 mmol/L (134.5-145); TOTAL PROTEIN 6.9 g/dL (6.3-8.2)
[2024-06-17 21:23] LABS: ANISOCYTOSIS 2+ (NOT PRESENT); HYPOCHROMASIA 2+ (NOT PRESENT); MICROCYTOSIS 2+ (NOT PRESENT)
[2024-06-17 21:32] LABS: BILIRUBIN,URINE Negative (NEGATIVE); CLARITY,URINE Cloudy (CLEAR); COLOR,URINE Yellow (YELLOW); GLUCOSE, URINE (UA) Negative (NEGATIVE); KETONES,URINE Negative (NEGATIVE); LEUKOCYTE ESTERASE ,URINE 2+ (NEGATIVE); NITRITE,URINE Negative (NEGATIVE); PROTEIN,URINE Negative (NEGATIVE); URINE, BLOOD 2+ (NEGATIVE); UROBILINOGEN,URINE 0.2 (0.2)
[2024-06-17 21:36] LABS: URINE WBC, MICROSCOPIC 30-50 (0-2)
[2024-06-17 21:37] LABS: BACTERIA,URINE 1+ (NOT PRESENT)
[2024-06-17] MEDS ORDERED: ZOFRAN 4 MG/2 ML IVP PRN (22:21)
[2024-06-17] MEDS ORDERED: TYLENOL PO PRN (22:21)
[2024-06-17] MEDS: ROCEPHIN 1 GM/50 ML D5W 1 GM/50 ML BAG IV SCH (22:40)
[2024-06-17] MEDS: LACTATED RINGERS 1,000 ML IV SCH (22:41)
[2024-06-17] MEDS: REGLAN IVP PRN (23:58)
[2024-06-18 00:25] VITALS: BMI 33.5
[2024-06-18 05:08] LABS: HEMOGLOBIN 12.4 g/dl (12.0-16.0); MEAN CORPUSCULAR HEMOGLOBIN 28.4 pg (27.0-31.0); MEAN CORPUSCULAR VOLUME 91.5 fl (81.0-99.0); PLATELET COUNT 204 10^3/uL (140-440); RDW COEFFICIENT OF VARIATION 14.1 % (11.6-14.8); RED BLOOD COUNT 4.37 10^6/ul (4.20-5.40); WHITE BLOOD COUNT 22.27 K/ul (4.6-10.2)
[2024-06-18 05:19] LABS: ALANINE AMINOTRANSFERASE 19.3 U/L (0-35); ALBUMIN 3.66 g/dL (3.5-5.0); ALKALINE PHOSPHATASE 74.1 U/L (53-141); ASPARTATE AMINO TRANSFERASE 27.4 U/L (14-36); BILIRUBIN,TOTAL 0.5 mg/dL (0.2-1.3); BLOOD UREA NITROGEN 13.3 mg/dL (7-17); CALCIUM 8.5 mg/dL (8.4-10.2); CARBON DIOXIDE 27.4 mmol/L (22-30.0); CHLORIDE 106.8 mmol/L (98-107); CREATININE 0.85 mg/dL (0.60-1.30); GLUCOSE 96.8 mg/dL (74-106); POTASSIUM 3.35 mmol/L (3.5-5.1); TOTAL PROTEIN 6.01 g/dL (6.3-8.2)
[2024-06-18 05:26] VITALS: BP 125/69; PULSE 65; RESP 19; TEMP 97.4
[2024-06-18 05:31] LABS: ANISOCYTOSIS 1+ (NOT PRESENT)
[2024-06-18] MEDS: PROTONIX IVP ONE (08:53)
[2024-06-18] MEDS: POTASSIUM CHLORIDE 20 MEQ/100 ML PREMIX 20 MEQ/100 ML BAG IV ONE (08:53)
[2024-06-18] MEDS: ANTIVERT PO PRN (10:32)
--- NOTE | 2024-06-18 11:23 | CT ---
EXAM: CTA NECK HISTORY: Dizziness. TECHNIQUE: CT angiography of the neck was performed with coronal and sagittal 3-D MIPS reconstructio ns. Internal carotid artery stenosis are assessed utilizing NASCET criteria. COMPARISON: None. FINDINGS: The visualized portions of the aortic arch are within normal limits. The origin of the right common carotid artery is patent. There is tiny atherosclerotic calcification at the right carotid bifurcation without significant stenosis. The origin of the left common carotid artery is patent. There is tiny atherosclerotic calcification at the left carotid bifurcation without significant stenosis. The right vertebral artery is normal in contour and caliber without significant stenosis. The left vertebral artery is normal in contour and caliber without significant stenosis. No aneurysm or vascular malformation is identified. There is grade 1 anterolisthesis at C4-C5. There is multilevel disc desiccation and degenerative celeste nge involving posterior disc osteophyte complexes, facet joint hypertrophy, and uncovertebral joint h ypertrophy resulting in various degrees of central canal and neural foraminal stenosis. IMPRESSION: Tiny small calcified plaques at bilateral carotid bifurcations without hemodynamically significant st enosis. All CT scans are performed using dose optimization techniques as appropriate to the performed exam an d include at least one of the following: Automated exposure control, adjustment of the mA and/or kV according t o size, and the use of iterative reconstruction technique.
--- NOTE | 2024-06-18 11:33 | CT ---
EXAM: CT BRAIN WITHOUT CONTRAST HISTORY: Dizziness TECHNIQUE: Multi-slice sequential. Coronal and sagittal reformations were performed. COMPARISON: None FINDINGS: There is no acute intracranial hemorrhage, extraxial fluid collection, mass affect, or midlineshift. There is mild to moderate diffuse sulcal prominence. Diffuse lateral ventricular enlargement is out of proportion to the degree of sulcal enlargement. Periventricular white matter hypodensity is seen . Intracranial atherosclerosis is present. The basal cisterns are patent. No large vascular territ ory area of hypodensity is seen within the brain. The calvarium is unremarkable. Visualized paranas al sinuses are clear. Mastoid air cells are clear. :::::::::::::::::::::::::::::: IMPRESSION: 1. No acute intracranial findings. 2. Ventricular enlargement out of proportion to the degree of sulcal enlargement. Correlate for nor mal pressure hydrocephalus. 3. Chronic findings of atrophy and small vessel ischemic disease. :::::::::::::::::::::::::::::: All CT scans are performed using dose optimization techniques as appropriate to the performed exam an d include at least one of the following: Automated exposure control, adjustment of the mA and/or kV according t o size, and the use of iterative reconstruction technique.
--- NOTE | 2024-06-18 12:58 | PCM.SS ---
Provider Provider: BYRON MOLINA PA-C, [facility] Ad[facility] Date Admission Date: 06/17/24 Discharge Date Discharge Date: 06/18/24 Primary Care Physician Primary Care Physician: LUIS F FELDER Chief Complaint Reason For Visit: UTI History of Present Illness History of Present Illness: Admitted 06/17/24 22:32, this 78 year old /WHITE/F with pmhx of NPH, CLL, hypertension who presented to ER with 2 day history of n/v and dizziness. Daughters help with history. Patient was seen in an urgent care on 06/16 due to n/v and diagnosed with UTI, prescribed zofran and macrobid. She has continued to have dizziness and n/v to the point she doesn't want to get up and walk because it is worse. She had an episode of diarrhea yesterday. Daughters didn't feel she was safe at home. In ER work up rather unremarkable but she did continue to have nausea despite antiemetics. UA showed suspect UTI and she was given rocephin. Admitted to [facility]. Orthostatics normal. Pt has not had any vomiting or diarrhea since admission. Urine culture showing no growth. Urine culture from 06/16 on [facility] showing mixed waldo. She has been able to ambulate in the hallways without difficulty. CT head w/o showed enlarged ventricles. MRI at [facility] from 08/20 showed significant enlargement at that time as well. She has seen Dr. Deepak Alberto, neurosurgery outpatient in 02/18 who decided no shunt was needed at this time since she has good quality of life. CTA neck negative for significant stenosis (US not available on the weekends). Was awaiting echo but daughters asked if this could be done outpatient since it was late in the day. Discussed with patient and daughters to trial meclizine, slow position changes, fall precautions, and to f/u with pcp. May need to f/u with neurosurgery if symptoms continue. 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) Emphysema lung J43.9 - Emphysema, unspecified (ICD-10) No pertinent past medical history Z78.9 - Other specified health status (ICD-10) Family History FATHER Hypertension Mother Dementia Social History Smoking and tobacco status: Former smoker Second hand smoke exposure: No Alcohol intake: former Substance use type: does not use Counseling given: No Household members: spouse Housing: house Marital status: M Number of children: 2 Financial difficulty paying for basics: not very hard Current gender identity: female Current diet type/program: regular Medications Mecications: Medications at Discharge (Home Meds & RX) calcium 600 mg capsule 600 mg PO DAILY 08/04/22 multivitamin 1 tab PO DAILY 08/04/22 ondansetron 4 mg disintegrating tablet 4 mg PO Q6H PRN nausea and vomiting #20 tabs 06/17/24 lisinopril 10 mg-hydrochlorothiazide 12.5 mg tablet tab 06/18/24 pantoprazole 20 mg tablet,delayed release (Protonix) 20 mg PO DAILY 06/18/24 Allergies Allergies Allergy/AdvReac Type Severity Reaction Status Date / Time No Known Allergies Allergy Verified 06/17/24 20:22 Review of Systems Constitutional: Denies Fever Head: Reports Normocephalic and Atraumatic Eyes: Denies Vision Changes Throat: Denies Sore Throat Cardiovascular: Denies Chest pain, Chest Pressure or Edema Respiratory: Denies Cough or Shortness of air Gastrointestinal: Reports Nausea, Vomiting and Diarrhea; Denies Abdominal pain or Melena Genitourinary: Denies Dysuria or Frequency Neurological: Reports Dizziness, Weakness and Problems with walking; Denies Headache or Syncope Physical Examination Appearance: Positive Well-appearing, Well-nourished, No Apparent Distress and Alert and Oriented x3 Head: Positive Normocephalic and Atraumatic Neck: Positive Supple and Trachea Midline Heart: Positive RRR Respiratory: Positive Breath Sounds Clear, Bilaterally and Respirations Nonlabored; Negative Crackles, Rhonchi or Wheezes GI/: Positive Soft, Nontender, Bowel sounds normal and No Distention Extremities: Positive Pedal Pulses Palpable Bilaterally; Negative Edema Neurological: Positive Cranial nerves intact, Alert, Oriented (+has some confu jaime on details ) and Other (+able to ambulate in the hallways unassisted, equal strength bilaterally, no focal deficits ) Psychiatric: Positive Affect Appropriate and Mood Appropriate Vital Signs (Last 4 Hours) Vital Signs Last 4 Hours: Vital Signs: Last 4 Hours 06/18/24 09:00 Oxygen Delivery Method Room Air Labs This Visit Labs This Visit: Labs This Visit 06/17/24 06/17/24 06/18/24 20:55 21:13 04:42 WBC 23.31 H 22.27 H RBC 4.92 4.37 Hgb 13.9 12.4 Hct 44.5 40.0 MCV 90.4 91.5 MCH 28.3 28.4 MCHC 31.2 L 31.0 L RDW Coeff of Ingris 14.2 14.1 Plt Count 229 204 Neutrophils % (Manual) 30.0 L 50.0 Band Neutrophils % 2.0 Lymphocytes % (Manual) 62.0 H 32.0 Monocytes % (Manual) 3.0 5.0 Eosinophils % (Manual) 1.0 2.0 Reactive Lymphocytes 4.0 9.0 H Hypochromasia 2+ Anisocytosis 2+ 1+ Microcytosis 2+ Sodium 140.6 140.0 Potassium 3.51 3.35 L Chloride 103.6 106.8 Carbon Dioxide 29.4 27.4 Anion Gap 11.11 9.15 BUN 14.1 13.3 Creatinine 0.88 0.85 Estimated GFR (MDRD) 62.00 65.00 BUN/Creatinine Ratio 16.02 15.64 Glucose 131.0 H 96.8 Calcium 8.82 8.50 Total Bilirubin 0.66 0.50 AST 31.6 27.4 ALT 21.6 19.3 Alkaline Phosphatase 87.7 74.1 Total Protein 6.90 6.01 L Albumin 4.33 3.66 Globulin 2.57 2.35 Albumin/Globulin Ratio 1.68 1.55 Lipase 217.3 Urine Color Yellow Urine Clarity Cloudy Urine pH 7.0 Ur Specific [place] 1.020 Urine Protein Negative Urine Glucose (UA) Negative Urine Ketones Negative Urine Blood 2+ H Urine Nitrite Negative Urine Bilirubin Negative Urine Urobilinogen 0.2 Ur Leukocyte Esterase 2+ H Urine Microscopic RBC 10-20 Urine Microscopic WBC 30-50 Ur Squamous Epith Cells 5-10 Urine Bacteria 1+ Microbiology This Visit 06/17/24 21:13 Urine,Clean Catch Urine Culture - Preliminary Imaging Imaging: EXAM: CT BRAIN WITHOUT CONTRAST HISTORY: Dizziness TECHNIQUE: Multi-slice sequential. Coronal and sagittal reformations were performed. COMPARISON: None FINDINGS: There is no acute intracranial hemorrhage, extraxial fluid collection, mass affect, or midlineshift. There is mild to moderate diffuse sulcal prominence. Diffuse lateral ventricular enlargement is out of proportion to the degree of sulcal enlargement. Periventricular white matter hypodensity is seen. Intracranial atherosclerosis is present. The basal cisterns are patent. No large vascular territory area of hypodensity is seen within the brain. The calvarium is unremarkable. Visualized paranasal sinuses are clear. Mastoid air cells are clear. :::::::::::::::::::::::::::::: IMPRESSION: 1. No acute intracranial findings. 2. Ventricular enlargement out of proportion to the degree of sulcal enlargement. Correlate for normal pressure hydrocephalus. 3. Chronic findings of atrophy and small vessel ischemic disease. EXAM: CTA NECK HISTORY: Dizziness. TECHNIQUE: CT angiography of the neck was performed with coronal and sagittal 3-D MIPS reconstructions. Internal carotid artery stenosis are assessed utilizing NASCET criteria. COMPARISON: None. FINDINGS: The visualized portions of the aortic arch are within normal limits. The origin of the right common carotid artery is patent. There is tiny atherosclerotic calcification at the right carotid bifurcation without significant stenosis. The origin of the left common carotid artery is patent. There is tiny atherosclerotic calcification at the left carotid bifurcation without significant stenosis. The right vertebral artery is normal in contour and caliber without significant stenosis. The left vertebral artery is normal in contour and caliber without significant stenosis. No aneurysm or vascular malformation is identified. There is grade 1 anterolisthesis at C4-C5. There is multilevel disc desiccation and degenerative change involving posterior disc osteophyte complexes, facet joint hypertrophy, and uncovertebral joint hypertrophy resulting in various degrees of central canal and neural foraminal stenosis. IMPRESSION: Tiny small calcified plaques at bilateral carotid bifurcations without hemodynamically significant stenosis. Review Review Statement: I have independently reviewed and interpreted the labs/EKGs/imaging that were ordered by the ER provider. I have reviewed all outside records that are available currently in our EMR including imaging/notes/labs from previous visits. Plan Reccomendations/Plan: 1. Vertigo - Meclizine prn, fluids, fall precautions. Check ct head, CTA neck, and echo. Check orthostats. 2. Hypertension - Hold lisinopril/hctz at this time 3. GERD - Cont home meds 4. CLL - Follows outpatient 5. NPH - Follows outpatient with neurosx Orthostatics normal. Pt has not had any vomiting or diarrhea since admission. Urine culture showing no growth. Urine culture from 06/16 on [facility] showing mixed waldo. She has been able to ambulate in the hallways without difficulty. CT head w/o showed enlarged ventricles. MRI at [facility] from 08/20 showed significant enlargement at that time as well. She has seen Dr. Deepak Alberto, neurosurgery outpatient in 02/18 who decided no shunt was needed at this time since she has good quality of life. CTA neck negative for significant stenosis (US not available on the weekends). Was awaiting echo but daughters asked if this could be done outpatient since it was late in the day. Discussed with patient and daughters to trial meclizine, slow position changes, fall precautions, and to f/u with pcp. May need to f/u with neurosurgery if symptoms continue. 1. Vertigo - Improved 2. Hypertension 3. GERD 4. CLL 5. NPH Additional Planning: Case discussed with ED Physician, Dr. Maldonado. DVT Prophylaxis: Advanced Care Plannin minutes spent discussing advance care planning. Admit to: Obs Discussed Plan of Care with Dr. Alejandra Aguayo. Review With Patient Reviewed with Patient and Family: Patient and family have been counseled on condition and care plan and have no immediate questions. I have personally discussed and reviewed the patient's visit/current labs/imaging/decision making with Dr. Alejandra Aguayo, my supervising attending. Total number of minutes spent with patient [85] min. More than 50% of the time spent with this patient was devoted to counseling and coordination of care. Time of Admission:06/17/24 22:32 Time of Discharge: 06/18/24 1000 Discharge Plan Discharge Discharge Orders: Discharge Patient (ONCE); Ordered 06/18/24 Ordered By: BYRON MOLINA Activity Restrictions/Additional Instructions: DISCHARGE TO HOME DX: DIZZINESS DIET: PROGRESS TOLERATED ACTIVITY: FALL PRECAUTIONS PHARMACY: [facility] MECLIZINE NEEDED FOR DIZZINESS FOLLOW UP WITH NEUROSURGERY FOR NPH IF YOUR SYMPTOMS CONTINUE CONSIDER OUTPATIENT ECHO Instructions: Acute Nausea and Vomiting (DC), Acute Diarrhea (ED) Patient Disposition: HOME WITH FAMILY CARE Prescriptions: New ondansetron 4 mg tablet,disintegrating 4 mg PO Q6H PRN (Reason: nausea and vomiting) Qty: 20 0RF meclizine 25 mg Tablet 25 mg PO TID PRN (Reason: vertigo) Qty: 30 0RF metoclopramide HCl [Reglan] 5 mg tablet 5 mg PO Q6HR PRN (Reason: nausea and vomiting) Qty: 14 0RF Continued calcium 600 mg Capsule 600 mg PO DAILY multivitamin Tablet 1 tab PO DAILY lisinopril-hydrochlorothiazide 10-12.5 mg tablet pantoprazole [Protonix] 20 mg tablet,delayed release (DR/EC) 20 mg PO DAILY Did you review [place] BUSINESS DEVELOPMENT for ALL controlled substances?: Not Applicable Discussed opioids are addictive and Narcan is available by prescription or from pharmacy.: No Condition: Stable
== END 2024-06-18 15:57 | disposition home or self-care (01) ==
LOC: MEDSURG B 20:17 → ED 20:17 → MEDSURG B 23:27
PROVIDERS: ADMIT Hospitalist; ATTEND Physician Assistant
DX: Z51.81 Encounter for therapeutic drug level monitoring; R19.7 Diarrhea, unspecified; R42 Dizziness and giddiness; G91.2 (Idiopathic) normal pressure hydrocephalus; N39.0 Urinary tract infection, site not specified; Z74.3 Need for continuous supervision; C95.10 Chronic leukemia of unspecified cell type not having achieved remission; Z79.899 Other long term (current) drug therapy; Z99.89 Dependence on other enabling machines and devices; I10 Essential (primary) hypertension; R11.2 Nausea with vomiting, unspecified; K21.9 Gastro-esophageal reflux disease without esophagitis